=== PATIENT | male | born 1985 | race American Indian/Alaskan Native ===

== ENCOUNTER 2021-12-14 12:24 | Emergency (ER) | payer SELFPAY ==
--- NOTE | 2021-12-14 12:58 | Emergency Department Report ---
ED General Adult HPI - General Chief complaint: Extremity Problem,Nontraumatic Stated complaint: PAIN/TWITCHING POST ARM INJURY Time Seen by Provider: 12/14/21 12:38 Source: patient Mode of arrival: Ambulatory Limitations: No Limitations - History of Present Illness Initial comments: Patient presents with complaints of pain in his right distal forearm/hand x 4 days, sharp/throbbing, non radiating, 7/10, worsened by finger movements, not relieved by anything. Endorses tingling and numbness in his fingers, weakness in his hand. States he had a bracelet in that R wrist. He had hit his forearm against an object 4 days ago. It had swollen overnight that the bracelt became embedded in the skin of his distal forearm. He went to [facility] 2 d ays ago, where the bracelet was cut off. The swelling has since worsened and he now has been having the tingling, numbness and twitching in his fingers since yesterday. - Related Data Allergies Allergy/AdvReac Type Severity Reaction Status Date / Time No Known Allergies Allergy Verified 12/14/21 12:38 ED Review of Systems ROS: Stated complaint: PAIN/TWITCHING POST ARM INJURY Other details as noted in HPI Comment: All other systems reviewed and negative Constitutional: denies: chills, fever ED Past Medical Hx - Past Medical History Previous Medical History?: No - Surgical History Past Surgical History?: No ED Physical Exam - General Limitations: No Limitations General appearance: alert, in no apparent distress - Head Head exam: Present: atraumatic, normocephalic - Eye Eye exam: Present: PERRL, EOMI - ENT ENT exam: Present: mucous membranes moist, other (airway patent) - Neck Neck exam: Present: other (supple; no JVD) - Respiratory Respiratory exam: Present: other (good air entry, nml I:E, CTAB, no use of MICHELLE) - Cardiovascular Cardiovascular Exam: Present: regular rate. Absent: rubs, gallop - GI/Abdominal GI/Abdominal exam: Present: soft, normal bowel sounds. Absent: distended, tenderness - Extremities Exam Extremities exam: Present: other (deep linear horizontal ulceration across distal 3rd of ventral R forearm with surrounding erythema and induration that seems to extend into R thenar eminence and R thumb; decreased chief controller tower strenth in R hand, with fasiculations and patient unable to make a fist) - Back Exam Back exam: Present: full ROM. Absent: tenderness - Neurological Exam Neurological exam: Present: alert, oriented X3, CN II-XII intact, motor sensory deficit (see extremities) - Skin Skin exam: Present: other (see extremities) ED Course Vital Signs 12/14/21 12/14/21 12:38 15:25 Temperature 98 F Pulse Rate 64 68 Respiratory 16 20 Rate Blood Pressure 148/93 145/88 [Left] O2 Sat by Pulse 100 100 Oximetry ED Medical Decision Making - Lab Data Result diagrams: 12/14/21 13:03 12/14/21 13:03 Laboratory Tests 12/14/21 12/14/21 13:03 13:03 WBC 3.6 L RBC 4.72 Hgb 13.7 Hct 42.8 MCV 91 MCH 29 MCHC 32 RDW 13.9 Plt Count 271 Lymph % (Auto) 23.4 [place] % (Auto) 6.3 Eos % (Auto) 2.4 Baso % (Auto) 2.0 H Lymph # (Auto) 0.9 L [place] # (Auto) 0.2 Eos # (Auto) 0.1 Baso # (Auto) 0.1 Seg Neutrophils % 65.9 Seg Neutrophils # 2.4 Sodium 143 Potassium 4.4 Chloride 105.6 Carbon Dioxide 25 Anion Gap 17 BUN 11 Creatinine 1.0 Estimated GFR > 60 BUN/Creatinine Ratio 11 Glucose 91 Calcium 9.9 Total Bilirubin 0.40 AST 30 ALT 45 Alkaline Phosphatase 68 Total Protein 8.2 Albumin 5.2 H Albumin/Globulin Ratio 1.7 XR R hand and XR R forearm: no sub q air; no foreign body - Medical Decision Making diff dz: worrisome for tenosynovitis with neurologic deficits as continuum of infected wound with cellulitis. Received clindamycin 900 mg IV x 1. Requested ortho consultation via unit aid. No call back x 4 hours. Critical care attestation.: If time is entered above; I have spent that time in minutes in the direct care of this critically ill patient, excluding procedure time. ED Disposition Clinical Impression: Wound infection, Numbness and tingling in right hand, Weakness of right hand Disposition: 30 STILL A PATIENT Is pt being admited?: No Does the pt Need Aspirin: No Condition: Stable Referrals: PRIMARY CARE, [Primary Care Provider] - 3-5 Days Time of Disposition: 21:00 (Patient care transferred to Dr. Chen (oncoming ER doc). Sign out was given by me to him. )
[2021-12-14 13:26] LABS: Basophils # (Auto) 0.1 K/mm3 (0.0-0.1); Eosinophils # (Auto) 0.1 K/mm3 (0.0-0.4); Eosinophils % (Auto) 2.4 % (0.0-4.3); Hematocrit 42.8 % (35.5-45.6); Hemoglobin 13.7 gm/dl (11.8-15.2); Lymphocytes # (Auto) 0.9 K/mm3 (1.2-5.4); Lymphocytes % (Auto) 23.4 % (13.4-35.0); Mean Corpuscular HGB Conc 32 % (32-34); Mean Corpuscular Volume 91 fl (84-94); Monocytes # (Auto) 0.2 K/mm3 (0.0-0.8); Monocytes % (Auto) 6.3 % (0.0-7.3); Platelet Count 271 K/mm3 (140-440); Red Blood Count 4.72 M/mm3 (3.65-5.03); Red Cell Distribution Width 13.9 % (13.2-15.2)
[2021-12-14] MEDS ORDERED: TETANUS,DIPHTHERIA TOXOID ADULT 0.5 ML INJ IM ONE (14:00)
--- NOTE | 2021-12-14 14:02 | XRay Report ---
RIGHT WRIST 3 VIEWS INDICATION: pain. COMPARISON: None. Foreign body removed from right wrist 3 days ago IMPRESSION: Soft tissue defect in the distal forearm is identified. No obvious radiopaque foreign mary dy is detected in the soft tissues. No osseous abnormality or joint pathology is detected. Signer Name: Dung Lanza Jr, MD Signed: 12/14/2021 1:57 PM Workstation Name: [id number]
--- NOTE | 2021-12-14 14:02 | XRay Report ---
RIGHT FOREARM 2 VIEWS INDICATION: pain. Foreign body removal 3 days ago COMPARISON: None. IMPRESSION: Soft tissue defect in the distal forearm is identified without evidence for radiopaque f oreign body. There is mild soft tissue edema in this area. No soft tissue gas is appreciated. The bon y structures are unremarkable. No significant DJD. Signer Name: Dung Lanza Jr, MD Signed: 12/14/2021 1:58 PM Workstation Name: [id number]
[2021-12-14 14:40] LABS: Alanine Aminotransferase 45 units/L (7-56); Albumin 5.2 g/dL (3.9-5); BUN/Creatinine Ratio 11; Blood Urea Nitrogen 11 mg/dL (9-20); Calcium 9.9 mg/dL (8.4-10.2); Hemolysis Index 4
[2021-12-14 15:25] VITALS: BP 145/88
--- NOTE | 2021-12-15 01:57 | Event Note ---
Date: 12/15/21 pt was handed over to me to speak to dr Ward , spoke with him and discussed case with him based on what was handed over by Dr Mims , got in touch with [facility] where he had the procedure done , Dr ward , recommnded abx and see in his office in am , wound has been cleaned and dressed with follow up this am, pt verbalised undestanding
[2021-12-15] MEDS ORDERED: NEOMY 3.5 MG/BACIT 400 UNITS/POLY B 5000 UNITS/GM OINT PACKET TP ONE (02:17)
== END 2021-12-15 02:34 | disposition still patient (30) ==
LOC: ED 12:24
DX: L08.9 Local infection of the skin and subcutaneous tissue, unspecified (principal); R53.1 Weakness; R20.2 Paresthesia of skin; Z79.899 Other long term (current) drug therapy
CPT/HCPCS: 36415; 73090; 73130; 80053; 85025; 87040; 90714; 96365; 99284; J7502